=== PATIENT | female | born 1965 | race Caucasian/White ===

== ENCOUNTER 2016-12-15 12:28 | Emergency (ER) | payer MEDICARE, OTHER ==
[~2016-12-15] VITALS: Ht 165.1 cm; Wt 105.0 kg
[~2016-12-15 12:28] MED LIST: ACAR25TA7 PO; ATOR10TA65; AZIT250T94 PO; BENA20TA48; FLUO20CA22; GABA300C16 PO; HYDR-3010 PO; HYDR-3504; IBUP-1542 PO; IBUP-722 PO; OSLT75C PO; PROM6.25 PO; RANI150C11 PO
[2016-12-15 12:35] VITALS: Ht 165.1 cm; Wt 105.0 kg
--- NOTE | 2016-12-15 15:35 | ERD ---
ER Documentation Chief Complaint Date/Time DATE: 12/15/16 TIME: 15:20 Chief Complaint C/O BLEEDING S/P LIPOSUCTION LAST WEEK HPI This is a 51-year-old female presents to the emergency department for wound check. Patient states she had gastric bypass surgery [address] Hitchcock at [facility] in [place]. Patient had a J/P Bulp drain placed after surgery and is concerned about post-op bleeding around the drain. No tachycardia, dizziness, weakness or fatigue. No vomiting or diarrhea. No severe pain. No fevers or chills. ROS All systems reviewed and are negative except as per history of present illness. Medications Home Meds Active Scripts Oseltamivir Phosphate* (Tamiflu*) 75 Mg Capsule, 75 MG PO BID for 5 Days, CAP Prov:LUCHO CHAVIS MD 12/20/15 Azithromycin* (Zithromax*) 250 Mg Tablet, 250 MG PO .ZPACK DIRECTED, #6 TAB TAKE 500 MG (2 TABS) THE FIRST DAY THEN 250 MG (1 TAB) DAYS 2-5 Prov:LUCHO CHAVIS MD 12/20/15 Promethazine w/Codeine* (Phenergan w/Codeine* Syrup) 5 Ml Syrup, 5 ML PO Q4H Y for COUGH for 5 Days, ML 6 ounces Prov:LUCHO CHAVIS MD 12/20/15 Ibuprofen* (Motrin*) 600 Mg Tab, 600 MG PO Q6, #16 TAB Prov:LUCHO CHAVIS MD 12/20/15 Reported Medications Hydroxyzine Hcl* (Hydroxyzine Hcl*) 10 Mg Tablet, 10 MG PO DAILY, #40 TAB 03/01/16 Gabapentin* (Gabapentin*) 300 Mg Capsule, 300 MG PO DAILY, #60 CAP 03/01/16 Acarbose* (Acarbose*) 25 Mg Tablet, 25 MG PO BID, #30 TAB 03/01/16 Ranitidine Hcl (Ranitidine Hcl) 150 Mg Capsule, 150 MG PO DAILY, #30 CAP 03/01/16 Atorvastatin (Atorvastatin) 10 Mg Tablet, #30 03/01/16 Benazepril Hcl* (Benazepril Hcl*) 20 Mg Tablet, #30 16 Hydrocodone Bit-Acetaminophen (Hydrocodone-APAP) 10-325MG Tablet, #100 03/01/16 Fluoxetine Hcl* (Fluoxetine Hcl*) 20 Mg Capsule, #30 03/01/16 Ibuprofen (MOTRIN) 800 Mg Tablet, 800 MG PO DAILY Y for PAIN 12/14/13 Allergies Allergies: Coded Allergies: No Known Allergy (Unverified , 02/29/16) PMhx/Soc History of Surgery: Yes ( X2, HYSTORECTOMY) Anesthesia Reaction: No Hx Neurological Disorder: No Hx Respiratory Disorders: No Hx Cardiac Disorders: Yes (HTN) Hx Psychiatric Problems: No Hx Miscellaneous Medical Probl: Yes (DM, RT KNEE PAIN) Hx Alcohol Use: No Hx Substance Use: No Hx Tobacco Use: No Smoking Status: Never smoker Physical Exam Vitals Vital Signs Date Time Temp Pulse Resp B/P Pulse Ox O2 Delivery O2 Flow Rate FiO2 12/15/16 12:35 98.2 98 18 132/72 98 Physical Exam Const: NAD Head: Atraumatic Eyes: Normal Conjunctiva ENT: Normal External Ears, Nose and Mouth. Neck: Full range of motion..~ No meningismus. Resp: Clear to auscultation bilaterally Cardio: Regular rate and rhythm, no murmurs Abd: Soft, non tender, non distended. Normal bowel sounds Skin: small surgical incision to left upper abdomen with J/P drain protruding. No erythema, warmth or purulent drainage from insertion site. Small amount of light pink blood draining around insertion site. Moderate amount of light pink/red blood to J/P drain. Back: No midline or flank tenderness Ext: No cyanosis, or edema Neur: Awake and alert Psych: Normal Mood and Affect Procedures/MDM ED COURSE: The patient was stable throughout ED course. I kept the patient and/or family informed of laboratory and diagnostic imaging results throughout the ED course. MDM: This is a 51-year-old female who presents emergency department for wound check status post gastric bypass surgery 3 days ago. Patient has ALBERTO drain from left upper quadrant incision from surgery. Patient is concerned because at site of drain insertion there is dried pink blood to gauze. The gauze with tape was removed while in the ED. insertion site was assessed and there are no signs of hemorrhage or severe bleeding. No erythema, purulent drainage or warmth around insertion site. A new dry gauze with clear tape was applied. Dr. Lin assessed this patient along with me and agrees with plan of care. Patient is appropriate for outpatient management. Low suspicion for infection or hemorrhage. Patient is appropriate for outpatient management and encouraged to follow-up with surgeon Dr. Hitchcock in the next 2-3 days for reassessment and additional management. Return to ED for any high fever, chest pain, difficulty breathing, shortness breath, wheezing, vomiting, diarrhea, abdominal pain or any new or worsening symptoms. Patient verbalizes understanding. All questions answered at discharge. Nepali translation use during this encounter. Departure Diagnosis: Primary Impression: Encounter for postoperative wound check Patient Instructions: Post Op Wound Check, General, Post Op Wound Check, Bleeding Referrals: EDVIN HARDEN MD (PCP) Additional Instructions: Llame al doctor MAANA y sandy jayden YAZ PARA DENTRO DE 2-3 PONCE.Dgale a la secretaria que nosotros le instruimos hacer esta yaz.Avise o llame si eugene condicin se empeora antes de la yaz. Regresa aqui si peor o no mejor. Return to ED for any high fever, chest pain, difficulty breathing, shortness breath, wheezing, vomiting, diarrhea, abdominal pain or any new or worsening symptoms. ABDI SIMPSON NP Dec 15, 2016 15:32
== END 2016-12-15 14:33 | disposition home or self-care (01) ==
LOC: FTE 12:28
DX: Z48.01 Encounter for change or removal of surgical wound dressing (principal); E11.9 Type 2 diabetes mellitus without complications; I10 Essential (primary) hypertension
CPT/HCPCS: 99281

== ENCOUNTER → 2017-02-14 | Outpatient (CLI) | payer MEDICARE, OTHER ==
--- NOTE | 2017-02-14 10:20 | RADRPT ---
PROCEDURE: Radiological examination of the esophagus CLINICAL INDICATION: Dysphagia, status post gastric bypass surgery, evaluate for esophageal lesion TECHNIQUE: The patient was NPO. The patient was given 8 ounces of barium with CO2 crystals orally via a cup. Subsequently videofluoroscopy was performed was performed. Routine esophageal images we re obtained. Fluoroscopy time: 0.9 min COMPARISON: No comparison study available. FINDINGS: Normal esophageal position, contour, distensibility, motility, and mucosal pattern. A small gastric pouch is identified consistent with the reported history of gastric bypass surgery. Delayed emptyin g into the gastric pouch is identified as well as prominent gastroesophageal reflux. No esophageal lesions are identified. Contrast is noted to freely flow into nondilated loops of jejunum. RPTAT: AA IMPRESSION: Delayed esophageal emptying into a small gastric pouch with prominent gastroesophageal reflux noted. No delay is noted in passage of contrast from the gastric pouch into nondilated loops of jejunum. No esophageal lesions are identified. Physician Martín Date Time Electronically viewed and signed by Physician Martín on 02/14/2017 10:20 /
== END | disposition home or self-care (01) ==
LOC: RAD 07:59
PROVIDERS: ATTEND Surgery
DX: R13.10 Dysphagia, unspecified (principal); Z98.84 Bariatric surgery status; K30 Functional dyspepsia; K21.9 Gastro-esophageal reflux disease without esophagitis
CPT/HCPCS: 74240

== ENCOUNTER 2017-12-22 10:00 | Emergency (ER) | END 2017-12-22 12:50 | disposition home or self-care (01) ==

== ENCOUNTER 2018-03-20 07:22 | Day surgery (SDC) | END 2018-03-20 15:45 | disposition home or self-care (01) ==